=== PATIENT | male | born 1960 | race African-American/Black ===

== ENCOUNTER 2021-11-27 20:32 | Emergency (ER) | payer BC ==
[~2021-11-27] VITALS: Ht 175.3 cm; Wt 94.3 kg
--- NOTE | 2021-11-27 20:50 | NUR ---
Pt brought back to room ED1B for complaint of bilat knee pain and a lt ear issue, pt states that hearing has become muffled in Lt ear, pt unclear what my have caused it. Pt has some pain in knees from arthritis and inflammed it when bowling a week ago. Pt otherwise healthy, except for a case of untreated HTN. Pt advised to seek treatment for his htn. informed him of its rep at [facility]" and just how seriious the consequences are. Pt acknowledged understanding and said that he would find a provider to put him on some pressors and dial them in. Pt SBP 145, rechecked at 154. Pt asymptomatic. Pt placed in pos of comfort, awaiting EDMD for eval.
[2021-11-27] MEDS ORDERED: NAPROXEN 500 MG TABLET PO ONE (21:00)
--- NOTE | 2021-11-27 21:00 | NUR ---
EDMD at bedside for eval of pt.
--- NOTE | 2021-11-27 21:30 | NUR ---
Pt medicated with NSAID per EDMD, observed for reaction for approx 20 min. Aftercare given to pt and pt confirmed understanding of dc paperwork. Pt signed out with VSS, PE WNL, no s/sx of distress present. No complaints of pain, sob, dizziness, or n/v
--- NOTE | 2021-11-27 21:30 | NUR ---
EDMD already printed up DC instructions and told me to medicate pt with 500mg of Naproxon and DC pt with aftercare instructions.
[2021-11-27] MEDS ORDERED: NAPR-1009 PO (21:43)
[2021-11-27] MEDS ORDERED: NAPROXEN 500 MG TABLET ONE (21:47)
== END 2021-11-27 21:30 | disposition home or self-care (01) ==
LOC: ER 20:42
DX: M25.562 Pain in left knee (principal); H91.90 Unspecified hearing loss, unspecified ear; F17.200 Nicotine dependence, unspecified, uncomplicated; I05.0 Rheumatic mitral stenosis; I10 Essential (primary) hypertension
CPT/HCPCS: 70450; A4663

== ENCOUNTER 2024-01-27 12:45 | Emergency (ER) | payer BC ==
[~2024-01-27] VITALS: Ht 175.3 cm; Wt 104.3 kg
[~2024-01-27 12:45] MED LIST: NAPR-1009 PO
[2024-01-27 13:42] LABS: BASOPHILS % (AUTO) 0.9 % (0.0-2.0); EOSINOPHILS % (AUTO) 1.2 % (0.0-7.0); HEMATOCRIT 39.5 % (36.7-47.1); HEMOGLOBIN 13.2 g/dL (12.5-16.3); LYMPHOCYTES # (AUTO) 1.4 K/uL (0.8-4.8); LYMPHOCYTES % (AUTO) 41.6 % (20.5-51.5); MEAN CORPUSCULAR HEMOGLOBIN 31.2 uug (23.8-33.4); MEAN CORPUSCULAR HGB CONC 34 g/dL (32.5-36.3); MEAN CORPUSCULAR VOLUME 92.9 fL (73.0-96.2); MONOCYTES # (AUTO) 0.3 K/uL (0.1-1.30); MONOCYTES % (AUTO) 8.9 % (0.0-11.0); NEUTROPHILS # (AUTO) 1.6 K/uL (1.8-8.9); NEUTROPHILS % (AUTO) 47.4 % (38.5-71.5); PLATELET COUNT (AUTO) 203 K/uL (152-348); RED BLOOD CELL COUNT(AUTO) 4.25 MIL/uL (4.06-5.63); RED CELL DISTRIBUTION WIDTH 13.2 % (12.1-16.2); WHITE BLOOD COUNT (AUTO) 3.4 K/uL (3.6-10.2)
[2024-01-27 14:01] LABS: CALCIUM 8.5 mg/dL (8.5-10.1); CREATININE 1.2 mg/dL (0.6-1.3)
[2024-01-27 14:03] LABS: DIFFERENTIAL COMMENT 1
[2024-01-27] MEDS ORDERED: SULF1TAB48 PO (15:03)
[2024-01-27] MEDS ORDERED: CEPH500C2 PO (15:03)
[2024-01-27 15:38] VITALS: BP 141/84; O2SAT 98
== END 2024-01-27 15:40 | disposition home or self-care (01) ==
LOC: ER 12:47
DX: L03.211 Cellulitis of face (principal); I05.0 Rheumatic mitral stenosis; F17.200 Nicotine dependence, unspecified, uncomplicated; Z79.899 Other long term (current) drug therapy
CPT/HCPCS: 36415; 85025; A4606; A4663

== ENCOUNTER 2024-02-07 14:48 | Emergency (ER) | payer BC ==
[~2024-02-07] VITALS: Ht 175.3 cm; Wt 103.9 kg
[~2024-02-07 14:48] MED LIST changes: +CEPH500C2 PO; +SULF1TAB48 PO
[2024-02-07] MEDS ORDERED: predniSONE 20 MG TABLET ONE (15:30)
[2024-02-07] MEDS: predniSONE 20 MG TABLET PO ONE (15:35)
[2024-02-07 15:45] LABS: BASOPHILS % (AUTO) 0.6 % (0.0-2.0); EOSINOPHILS # (AUTO) 0.1 K/uL (0.0-0.7); EOSINOPHILS % (AUTO) 3.4 % (0.0-7.0); HEMATOCRIT 41.1 % (36.7-47.1); HEMOGLOBIN 13.7 g/dL (12.5-16.3); LYMPHOCYTES # (AUTO) 0.8 K/uL (0.8-4.8); LYMPHOCYTES % (AUTO) 27.9 % (20.5-51.5); MEAN CORPUSCULAR HGB CONC 33 g/dL (32.5-36.3); MEAN CORPUSCULAR VOLUME 92.7 fL (73.0-96.2); MONOCYTES # (AUTO) 0.3 K/uL (0.1-1.30); MONOCYTES % (AUTO) 11.6 % (0.0-11.0); NEUTROPHILS # (AUTO) 1.6 K/uL (1.8-8.9); NEUTROPHILS % (AUTO) 56.5 % (38.5-71.5); PLATELET COUNT (AUTO) 179 K/uL (152-348); RED BLOOD CELL COUNT(AUTO) 4.43 MIL/uL (4.06-5.63); RED CELL DISTRIBUTION WIDTH 12.9 % (12.1-16.2); WHITE BLOOD COUNT (AUTO) 2.9 K/uL (3.6-10.2)
[2024-02-07 15:51] LABS: DIFFERENTIAL COMMENT 1
[2024-02-07 15:54] LABS: CALCIUM 8.6 mg/dL (8.5-10.1); CREATININE 1.1 mg/dL (0.6-1.3); POTASSIUM 3.9 mmol/L (3.5-5.1)
[2024-02-07 16:04] LABS: ALBUMIN 3.8 g/dL (3.4-5.0); BILIRUBIN,DIRECT 0.1 mg/dL (0.0-0.2); BILIRUBIN,TOTAL 0.5 mg/dL (0.2-1.0); TOTAL PROTEIN, SERUM 7.8 g/dL (6.4-8.2)
[2024-02-07] MEDS ORDERED: PRED50TA PO (16:57)
[2024-02-07] MEDS ORDERED: HYDR25CA PO (16:57)
[2024-02-07 17:14] VITALS: BP 128/75; O2SAT 98
== END 2024-02-07 17:10 | disposition home or self-care (01) ==
LOC: ER 14:48
DX: L27.1 Localized skin eruption due to drugs and medicaments taken internally (principal); I05.0 Rheumatic mitral stenosis; E11.9 Type 2 diabetes mellitus without complications; F17.200 Nicotine dependence, unspecified, uncomplicated; Z79.891 Long term (current) use of opiate analgesic; Z79.51 Long term (current) use of inhaled steroids; Z79.899 Other long term (current) drug therapy
CPT/HCPCS: 99283; 80076; 80048; 83880; 85025; 85730; 84484; 36415; J7512; A4606; A4663

== ENCOUNTER 2025-03-25 01:08 | Emergency (ER) | payer BC ==
[~2025-03-25] VITALS: Ht 175.3 cm; Wt 104.3 kg
[~2025-03-25 01:08] MED LIST changes: +HYDR25CA PO; +PRED50TA PO
[2025-03-25 01:22] VITALS: BP 163/88; O2SAT 94
== END 2025-03-25 01:40 | disposition home or self-care (01) ==
LOC: ER 01:11
DX: N48.89 Other specified disorders of penis (principal); F17.200 Nicotine dependence, unspecified, uncomplicated; I05.0 Rheumatic mitral stenosis; E11.9 Type 2 diabetes mellitus without complications; Z79.52 Long term (current) use of systemic steroids
CPT/HCPCS: A4606; A4663